=== PATIENT | male | born 1980 | race Two or more races ===

== ENCOUNTER 2016-05-11 15:33 | Emergency (ER) | payer BC ==
[2016-05-11 16:03] VITALS: BMI 31.1
[2016-05-11 16:07] VITALS: RESP 20; TEMP 97.8
--- NOTE | 2016-05-11 16:17 | ED PDOC ---
Arrival/HPI <Mervin Cottrell DO - Last Filed: 05/11/16 18:20> - General Historian: Patient - History of Present Illness Time/Duration: 24 hours Symptom Onset: Sudden Symptom Course: Unchanged Severity Level: 7, 8 <Abiodun Lee - Last Filed: 05/11/16 19:30> - General Chief Complaint: Abdominal Pain Time Seen by Provider: 05/11/16 15:51 - History of Present Illness Narrative History of Present Illness (Text): 05/11/16 16:14 This is a 36 year old male without PMH presenting to the ED for evaluation of abdominal pain. The patient states that he began having right sided abdominal pain the evening before presentation. The patient notes that at 12:30AM this morning he took 3 ibuprofen which did not provide much relief. The patient had a BM at 7am this morning which provided relief. The patient notes that the pain has since com back and he has not passed flatus or had a BM since 7am. The patient also notes that he has burning and increased frequency with urination. The patient denies fevers, chills, N/V/D, and hematuria. PMH: None Allergy: NKDA Surg: None Social: Denies (Abiodun Lee) Past Medical History - Provider Review Nursing Documentation Reviewed: Yes - Travel History Have you recently traveled outside [place] w/in the past 3 mons?: No - Past History Past History: No Previous - Infectious Disease Hx of Infectious Diseases: None - Tetanus Immunization Tetanus Immunization: Unknown - Past Medical History Past Medical History: No Previous - Psychiatric Hx Substance Use: No <Abiodun Lee - Last Filed: 05/11/16 19:30> Family/Social History - Physician Review Nursing Documentation Reviewed: Yes Family/Social History: No Known Family HX Smoking Status: Never Smoked Hx Alcohol Use: No Hx Substance Use: No <Abiodun Lee - Last Filed: 05/11/16 19:30> Allergies/Home Meds <Mervin Cottrell DO - Last Filed: 05/11/16 18:20> <Abiodun Lee - Last Filed: 05/11/16 19:30> Allergies/Adverse Reactions: Allergies No Known Allergies Allergy (Verified 05/11/16 16:03) Review of Systems - Physician Review All systems were reviewed & negative as marked: Yes - Review of Systems Constitutional: absent: Fatigue, Fevers Respiratory: absent: SOB, Cough Cardiovascular: absent: Chest Pain, Palpitations Gastrointestinal: Abdominal Pain. absent: Stool Changes, Constipation, Diarrhea , Nausea, Vomiting, Food Intolerance Genitourinary Male: Dysuria, Frequency. absent: Hematuria Skin: absent: Rash Neurological: absent: Headache <Abiodun Lee - Last Filed: 05/11/16 19:30> Physical Exam Vital Signs Reviewed: Yes Temperature: Afebrile Blood Pressure: Hypertensive Pulse: Regular Respiratory Rate: Normal Appearance: Positive for: Well-Appearing, Non-Toxic, Comfortable Pain Distress: Mild Mental Status: Positive for: Alert and Oriented X 3 - Systems Exam Head: Present: Atraumatic, Normocephalic Pupils: Present: PERRL. No: Pinpoint Extroacular Muscles: Present: EOMI. No: Entrapment Conjunctiva: Present: Normal. No: Icteric Mouth: Present: Moist Mucous Membranes. No: Dry Respiratory/Chest: Present: Clear to Auscultation, Good Air Exchange. No: Respiratory Distress, Accessory Muscle Use Cardiovascular: Present: Regular Rate and Rhythm, Normal S1, S2. No: Murmurs Abdomen: Present: Distention (minimal), Normal Bowel Sounds. No: Tenderness, Peritoneal Signs, Rebound, Guarding, McBurney's Point Tender, Rovsing's Sign Present, Hernias, Other Back: Present: Normal Inspection, CVA Tenderness (Right ). No: Midline Tenderness, Paraspinal Tenderness, Pain with Leg Raise Upper Extremity: Present: Normal Inspection, Neurovascularly Intact. No: Cyanosis, Edema Lower Extremity: Present: Normal Inspection, Neurovascularly Intact. No: Edema Neurological: Present: GCS=15, CN II-XII Intact Skin: Present: Warm, Dry, Normal Color. No: Rashes Psychiatric: Present: Alert, Oriented x 3 <Abiodun Lee - Last Filed: 05/11/16 19:30> Vital Signs Temp Pulse Resp BP Pulse Ox 05/11/16 18:54 81 20 129/83 98 05/11/16 16:06 97.8 F 65 20 160/90 H 100 Medical Decision Making <Mervin Cottrell DO - Last Filed: 05/11/16 18:20> Re-evaluation Time: 17:15 - Lab Interpretations I have reviewed the lab results: Yes Interpretation: All labs normal - RAD Interpretation Components Engineer: ED Physician, Radiologist <Abiodun Lee - Last Filed: 05/11/16 19:30> ED Course and Treatment: 05/11/16 18:20 36 year old male complaining of abdominal pain. In agreement with resident note , which includes further HPI details. Patient was seen and evaluated with resident, came up with plan and treatment together. On physical exam, patient with minimal abdominal distention and right CVA tenderness. (Mervin Cottrell DO) 05/11/16 16:27 Impression: This is a 36 year old male presenting with abdominal pain x 1 day. The patient reports that his abdominal pain resolved at 7am this morning following a BM. The patient since that point reports not having passed gas or BM. He subjectively reports abdominal distension. The patient appears in no distress. Pain likely 2/2 to abdominal gas pain vs UTI. Differential: Abdominal Gas Pain Kidney Stone Constipation Gastritis UTI Plan: Simethicone 80mg chew Abdominal Flat Plate CBC, CMP, Amylase, Lipase UA, Urine C&S Prior Visits: None Progress Note: Patient seen and examined at the bedside. The patient is in no overt distress 2 /2 to pain. The patient reports right sided abdominal pain. No tenderness on palpation. Tenderness on CVA exam. Patient will have laboratory studies and urine studies in addition to a flat plate for further examination. 05/11/16 17:39 Minimal improvement with simethicone. Toradol 15mg IV ordered for pain control. Abdominal flat plate film shows nonobstructive bowel gas pattern with mild constipation. CBC returned normal results. UA and CMP pending. 05/11/16 19:26 CT findings show a recently passed 1 mm right ureterolithiasis, now in the bladder with minimal residual hydronephrosis and inflammation and punctate submillimeter bilateral nonobstructing renal urolithiasis present. The patient reports a decrease in his pain. Patient instructed to drink plenty of fluids. Motrin 600mg q8 prn prescribed. Patient's condition discussed at length, patient agreeable for discharge home. Patient medically stable for DC home. ( Abiodun Lee) - Lab Interpretations Lab Results: 05/11/16 17:00 05/11/16 17:00 Lab Results 05/11/16 17:00: WBC 6.7, RBC 5.71, Hgb 16.0, Hct 44.9, MCV 78.6 L, MCH 28.0, MCHC 35.6, RDW 12.6, Plt Count 234, MPV 10.6, Gran % 61.9, Lymph % (Auto) 25.6, [place] % (Auto) 9.9 H, Eos % (Auto) 2.2, Baso % (Auto) 0.4, Gran # 4.14, Lymph # 1.7, [place] # 0.7 H, Eos # 0.2, Baso # 0.03, Sodium 139, Potassium 3.8, Chloride 100, Carbon Dioxide 28, Anion Gap 15, BUN 8, Creatinine 0.8, Est GFR ( Amer) > 60, Est GFR (Non-Af Amer) > 60, Random Glucose 119 H, Calcium 9.6, Total Bilirubin 1.1, AST 41, ALT 59 H, Alkaline Phosphatase 76, Total Protein 8.9 H, Albumin 4.8, Globulin 4.1, Albumin/Globulin Ratio 1.2, Amylase 91, Lipase 51, Urine Color Yellow, Urine Appearance Clear, Urine pH 6.0, Ur Specific [place] 1.025, Urine Protein Negative, Urine Glucose (UA) Negative, Urine Ketones Negative, Urine Blood Moderate H, Urine Nitrate Negative, Urine Bilirubin Negative, Urine Urobilinogen 0.2, Ur Leukocyte Esterase Negative, Urine RBC 2 - 5, Urine WBC 0 - 2, Ur Epithelial Cells 1 - 3, Urine Bacteria Few - RAD Interpretation Narrative RAD Interpretations (Text): 05/11/16 17:40 Abdominal Flat Plate- Nonobstructive bowel gas pattern. Mild constipation. 05/11/16 19:25 CT Abd/Pelv- CT findings are compatible with a recently passed 1 mm right ureterolithiasis, now in the bladder with minimal residual hydronephrosis and inflammation Punctate submillimeter bilateral nonobstructing renal urolithiasis. (Abiodun Lee) Radiology Orders: 05/11/16 16:24 ABDOMEN (FLAT PLATE) 1VIEW [RAD] Stat 05/11/16 17:45 ABDOMEN & PELVIS [ABD & PELVIS W/O PO OR IV CONT] [CT] Stat - Medication Orders Current Medication Orders: Discontinued Medications Ketorolac Tromethamine (Toradol) 15 mg IVP STAT STA Stop: 05/11/16 17:39 Last Admin: 05/11/16 17:56 Dose: 15 MG IVP Administration Document 05/11/16 17:56 [facility] (Rec: 05/11/16 17:57 [email or web address]) Charges for Administration # of IVP Administrations 1 Simethicone (Mylicon Chew Tab) 80 mg PO PCHS STA Stop: 05/11/16 16:26 Last Admin: 05/11/16 17:09 Dose: 80 MG - PA / PERSONAL CARER / Resident Statement / has reviewed & agrees with the documentation as recorded. / has examined the patient and agrees with the treatment plan. - Scribe Statement The provider has reviewed the documentation as recorded by the Scribe <Mervin Cottrell DO - Last Filed: 05/11/16 18:20> <Abiodun Lee - Last Filed: 05/11/16 19:30> - Scribe Statement Mane Harris All medical record entries made by the Scribe were at my direction and personally dictated by me. I have reviewed the chart and agree that the record accurately reflects my personal performance of the history, physical exam, medical decision making, and the department course for this patient. I have also personally directed, reviewed, and agree with the discharge instructions and disposition. (Mervin Cottrell DO) Disposition/Present on Arrival <Mervin Cottrell DO - Last Filed: 05/11/16 18:20> - Present on Arrival Any Indicators Present on Arrival: No History of DVT/PE: No History of Uncontrolled Diabetes: No Urinary Catheter: No History of Decub. Ulcer: No History Surgical Site Infection Following: None - Disposition Have Diagnosis and Disposition been Completed?: Yes Disposition Time: 18:30 Patient Plan: Discharge <Abiodun Lee - Last Filed: 05/11/16 19:30> - Disposition Diagnosis: Abdominal pain, Calculus of kidney Disposition: HOME/ ROUTINE Patient Problems: Current Active Problems Problem Status Diagnosed Abdominal pain Acute Condition: GOOD Discharge Instructions (ExitCare): Gas and Bloating (ED), Abdominal Pain (ED), Kidney Stones (ED) Print Language: UZBEK Additional Instructions: 1.) Maintain adequate hydration 2.) Ensure Diet contains plenty of fiber 3.) Follow up with PMD following discahrge 4.) If symptoms return, please return to the ED for evaluation Prescriptions: Ibuprofen [Motrin] 600 mg PO Q8 PRN #30 tab PRN Reason: Pain Referrals: PCP,NO [Primary Care Provider] - Follow up with primary
[2016-05-11] MEDS ORDERED: Simethicone 80 mg Chewtab PO STA (16:25)
[2016-05-11 17:14] LABS: ADD MANUAL DIFF? NO
--- NOTE | 2016-05-11 17:28 | RAD ---
HISTORY: abdominal pain COMPARISON: None available. FINDINGS: BOWEL: Nonobstructive bowel gas pattern. Mild constipation. BONES: No acute osseous abnormality is detected. OTHER FINDINGS: None. IMPRESSION: Nonobstructive bowel gas pattern. Mild constipation.
[2016-05-11 17:34] LABS: URINE BILIRUBIN NEGATIVE (NEGATIVE); URINE BLOOD MODERATE (NEGATIVE); URINE GLUCOSE (UA) NEGATIVE (NEGATIVE); URINE KETONE NEGATIVE (NEGATIVE); URINE LEUKOCYTE ESTERASE NEGATIVE Leu/uL (NEGATIVE); URINE PROTEIN NEGATIVE mg/dL (<30 mg/dL); URINE UROBILINOGEN 0.2 E.U./dL (<1 E.U./dL)
[2016-05-11 17:35] LABS: BASO # 0.03 K/mm3 (0.0-2.0); BASO % 0.4 % (0.0-3.0); EOS # 0.2 (0.0-0.7); EOS % 2.2 % (1.5-5.0); GRAN # 4.14 (1.4-6.5); GRAN % 61.9 % (50.0-68.0); HEMATOCRIT 44.9 % (42.0-52.0); LYMPH # 1.7 (1.2-3.4); LYMPH % 25.6 % (22.0-35.0); MEAN CELL VOLUME 78.6 fL (80.0-105.0); MEAN CORPUSCULAR HGB CONC 35.6 g/dl (31.0-37.0); MEAN PLATELET VOLUME 10.6 fl (7.0-11.0); MONO # 0.7 (0.1-0.6); MONO % 9.9 % (1.0-6.0); PLATELET COUNT 234 10^3/uL (120.0-450.0); RED CELL DISTRIBUTION WIDTH 12.6 % (11.5-14.5); WHITE BLOOD COUNT 6.7 10^3/ul (4.5-11.0)
[2016-05-11 17:38] LABS: ALB/GLOB RATIO 1.2 (1.1-1.8); ALKALINE PHOSPHATASE 76 U/L (38-133); ALT/SGPT 59 U/L (7-56); AMYLASE 91 U/L (35-125); AST/SGOT 41 U/L (15-59); BILIRUBIN,TOTAL 1.1 mg/dL (0.2-1.3); BLOOD UREA NITROGEN 8 mg/dL (7-21); CALCIUM 9.6 mg/dL (8.4-10.5); CARBON DIOXIDE 28 mmol/L (21-33); CHLORIDE 100 mmol/L (98-107); GFR AFRICAN-AMERICAN > 60; GLUCOSE,RANDOM 119 mg/dL (70-110); LIPASE 51 U/L (23-300); POTASSIUM 3.8 mmol/L (3.6-5.0); SODIUM 139 mmol/L (132-148); TOTAL PROTEIN 8.9 g/dL (5.8-8.3)
[2016-05-11 17:41] LABS: URINE APPEARANCE CLEAR (CLEAR); URINE COLOR YELLOW (YELLOW)
[2016-05-11 17:43] LABS: URINE BACTERIA FEW (NEG); URINE WBC 0 - 2 /hpf (0-6)
[2016-05-11 18:55] VITALS: BP 129/83; O2SAT 98
[2016-05-11 19:41] VITALS: PULSE 90
--- NOTE | 2016-05-12 10:21 | CT ---
PROCEDURE: CT Abdomen and Pelvis without Oral or IV contrast. HISTORY: Rule Out Kidney Stone / Abdominal Pain COMPARISON: Abdominal x-ray performed 05/11/16 TECHNIQUE: Contiguous axial images of the abdomen and pelvis. No oral or IV contrast administered. Coronal and Sagittal reformats generated and reviewed. Radiation dose: Total exam DLP = 807.35 mGy-cm. FINDINGS: There is limited evaluation of the solid organs without the administration of IV contrast. LOWER THORAX: No visible consolidation, pleural effusion, or pneumothorax. Small hiatal hernia/distal esophageal wall thickening. LIVER: Diffuse hypoattenuation of the liver compatible with hepatic steatosis. Suspect regions of focal fatty sparing adjacent to the gallbladder fossa. Hepatomegaly. GALLBLADDER AND BILE DUCTS: Unremarkable unenhanced appearance. PANCREAS: Unremarkable unenhanced appearance. SPLEEN: Unremarkable unenhanced appearance. ADRENALS: Right adrenal gland calcifications ; statistically sequela of previous infection/inflammation or bleed. The left adrenal gland appears grossly unremarkable. KIDNEYS AND URETERS: Minimal right hydroureter nephrosis. Mild right perinephric and periureteric induration. No obstructing calculi evident bilaterally. No left-sided hydronephrosis. BLADDER: Decompressed urinary bladder limits evaluation. Punctate 2 mm calculus is evident within the urinary bladder just distal to the right UV junction; appearance consistent with recently passed calculus. Urinary bladder wall appears mildly thickened presumed exaggerated by under distension, however cystitis cannot be entirely excluded. Correlate clinically. REPRODUCTIVE: Unremarkable. APPENDIX: No secondary signs of acute appendicitis. BOWEL: The stomach is nondistended. Lack of oral contrast limits evaluation for bowel pathology. The bowel loops appear within normal limits of caliber without evidence of intestinal obstruction. PERITONEUM: No significant free fluid. No definite free air. LYMPH NODES: No bulky lymphadenopathy identified. VASCULATURE: No aortic aneurysm. BONES: No acute osseous abnormality is detected. OTHER FINDINGS: None. IMPRESSION: Evidence of recently passed calculus with 2 mm calculus identified within the urinary bladder just distal to the right UVJ. Correlate clinically. Mildly thickened urinary bladder wall presumably exaggerated by underdistention, however cystitis cannot be entirely excluded. Mild residual hydronephrosis and hydroureter. Hepatomegaly. Hepatic steatosis with regions of suspected focal fatty sparing near the gallbladder fossa. Additional incidental findings as above. Preliminary impression was provided by virtual radiologic.
== END 2016-05-11 19:39 | disposition home or self-care (01) ==
LOC: ED 15:33
DX: N20.0 Calculus of kidney (principal); R10.9 Unspecified abdominal pain
CPT/HCPCS: 74000; 74176; 80053; 81001; 82150; 83690; 85025; 87086; 96374; 99283; J1885